=== PATIENT | female | born 1985 | race Hispanic/Latino ===

== ENCOUNTER 2017-11-11 10:13 | Inpatient (IN) | payer OTHER, MEDICAID ==
[~2017-11-11] VITALS: Ht 162.6 cm; Wt 108.0 kg
[2017-11-11 11:06] LABS: APPEARANCE,URINE CLEAR (CLEAR); BILIRUBIN,URINE NEGATIVE (NEGATIVE); COLOR,URINE YELLOW (YELLOW); GLUCOSE, URINE (UA) NEGATIVE (NEGATIVE); KETONES,URINE 5 mg/dL (NEGATIVE); LEUKOCYTE ESTERASE ,URINE NEGATIVE (NEGATIVE); NITRATE,URINE NEGATIVE (NEGATIVE); OCCULT BLOOD,URINE NEGATIVE (NEGATIVE); PROTEIN,URINE NEGATIVE (NEGATIVE)
[2017-11-11 11:35] LABS: MUCUS,URINE Rare LPF (None Seen)
[2017-11-11 11:36] LABS: BACTERIA,URINE Rare /HPF (None Seen); RBC,URINE 0-1 /HPF (0-1); WBC,URINE None Seen /HPF (0-1)
[2017-11-11] MEDS ORDERED: CALDOLOR 800MG+NS 250ML 250 ML IV PRN (12:30)
[2017-11-11] MEDS ORDERED: CEFAZOLIN SODIUM 1 GM VIAL IVP PRN (12:30)
[2017-11-11] MEDS ORDERED: LACTATED RINGERS 1000ML 1,000 ML IV SCH (12:30)
[2017-11-11 12:42] LABS: HEMATOCRIT 38.1 % (36-48); MEAN CORPUSCULAR HEMOGLOBIN 29.4 pg (27.0-33.0); MEAN CORPUSCULAR HGB CONC 33.6 g/dL (32.0-36.0); MEAN CORPUSCULAR VOLUME 87.6 fL (79-99); NUCLEATED RED BLOOD CELLS 0.1 % (0.0-0.19); PLATELET COUNT (AUTO) 263 K/uL (130-400); RED BLOOD CELL COUNT(AUTO) 4.35 MIL/uL (4.00-5.50); RED CELL DISTRIBUTION WIDTH 18.8 % (11.0-15.5); WHITE BLOOD COUNT (AUTO) 11.5 K/uL (4.8-10.8)
[2017-11-11] MEDS ORDERED: FENTANYL CITRATE PF 50 MCG/1 ML 2ML VIAL ONE (13:17)
[2017-11-11] MEDS ORDERED: DURAMORPH PF1 MG/ML 10ML AMP IV ONE (13:19)
[2017-11-11] MEDS ORDERED: CEFAZOLIN SODIUM 1 GM VIAL IVP ONE (13:30)
[2017-11-11] MEDS ORDERED: ONDANSETRON HCL 4 MG/2 ML VIAL ONE (14:11)
[2017-11-11] MEDS ORDERED: OXYTOCIN 10 USP UNITS/ML ONE ×2 (14:11→17:20)
[2017-11-11] MEDS ORDERED: PHENYLEPHRINE HCL 10 MG/ML 1ML VIAL IV ONE (14:11)
[2017-11-11] MEDS ORDERED: SODIUM CHLORIDE 0.9% 10 ML VIAL ONE (14:11)
[2017-11-11] MEDS ORDERED: EPHEDRINE SULFATE 50 MG/ML AMPULE IVP PRN (14:45)
[2017-11-11] MEDS ORDERED: ONDANSETRON HCL 4 MG/2 ML VIAL IVP PRN ×2 (14:45)
[2017-11-11] MEDS ORDERED: METOCLOPRAMIDE 10 MG/2 ML VIAL IVP PRN (14:45)
[2017-11-11] MEDS ORDERED: PROMETHAZINE HCL 25 MG/ML 1ML AMPULE IM PRN ×2 (14:45→20:45)
[2017-11-11] MEDS ORDERED: NALOXONE HCL 0.4 MG/1 ML ML IVP PRN ×2 (14:45)
[2017-11-11] MEDS ORDERED: HYDROCODONE/ACETAMINOPHEN 5/325 MG TAB PO PRN (14:45)
[2017-11-11] MEDS ORDERED: DiphenhydrAMINE HCL 50 MG/ML VIAL IVP PRN (14:45)
[2017-11-11] MEDS ORDERED: MORPHINE SULFATE 2 MG/ML 1ML SYG IVP PRN (14:45)
[2017-11-11] MEDS ORDERED: ONDANSETRON HCL 4 MG/2 ML 8 MG in SODIUM CHLORIDE 0.9% 50 ML IVP NR (14:45)
[2017-11-11 16:30] VITALS: BP 121/44
[2017-11-11 19:17] VITALS: BP 124/71
[2017-11-11] MEDS ORDERED: MEPERIDINE-PF 75 MG/ML SYG IM PRN (20:30)
[2017-11-11] MEDS ORDERED: CEFAZOLIN 2GM / 50 ML 50 ML IV SCH (20:30)
[2017-11-11] MEDS: CEFAZOLIN SODIUM 1 GM VIAL IVP SCH (21:00)
[2017-11-11 22:46] VITALS: BP 104/71
[2017-11-11] MEDS: HYDROCODONE/ACETAMINOPHEN 5/325 MG TAB PO PRN (23:06)
[2017-11-12] MEDS: DEXTROSE 5 %-0.45 % NACL 1,000 ML IV SCH ×4 (01:00→16:30)
[2017-11-12 03:02] VITALS: BP 95/49
[2017-11-12] MEDS: CEFAZOLIN SODIUM 1 GM VIAL IVP SCH (05:03)
[2017-11-12] MEDS: HYDROCODONE/ACETAMINOPHEN 5/325 MG TAB PO PRN ×2 (05:14→23:43)
[2017-11-12 06:33] LABS: HEMATOCRIT 33.8 % (36-48); MEAN CORPUSCULAR HEMOGLOBIN 29.7 pg (27.0-33.0); MEAN CORPUSCULAR HGB CONC 33.7 g/dL (32.0-36.0); MEAN CORPUSCULAR VOLUME 88.2 fL (79-99); NUCLEATED RED BLOOD CELLS 0.1 % (0.0-0.19); PLATELET COUNT (AUTO) 223 K/uL (130-400); RED BLOOD CELL COUNT(AUTO) 3.83 MIL/uL (4.00-5.50); RED CELL DISTRIBUTION WIDTH 18.6 % (11.0-15.5)
[2017-11-12 07:51] VITALS: BP 102/52
[2017-11-12] MEDS ORDERED: LANOLIN 30GM OINTMENT TP PRN (08:00)
[2017-11-12] MEDS ORDERED: ACETAMINOPHEN EXTRA STRENGTH 500 MG TABLET PO PRN (08:00)
[2017-11-12] MEDS ORDERED: BISACODYL 10 MG SUPP.RECT RC PRN (08:00)
[2017-11-12] MEDS ORDERED: DIPHENHYDRAMINE HCL 25 MG CAPSULE PO PRN (08:00)
[2017-11-12] MEDS ORDERED: HYDROCODONE/ACETAMINOPHEN 5/325 MG TAB PO PRN (08:00)
[2017-11-12] MEDS: SIMETHICONE 80 MG TAB.CHEW PO PRN ×3 (09:14→21:25)
[2017-11-12] MEDS: DOCUSATE SODIUM 100 MG CAP PO SCH ×2 (09:14→21:25)
[2017-11-12] MEDS: IBUPROFEN 600 MG TABLET PO PRN ×2 (09:15→18:24)
[2017-11-12] MEDS: ACETAMINOPHEN-CODEINE 300/30MG TAB PO PRN ×2 (11:10→19:56)
[2017-11-12 11:33] VITALS: BP 111/63
[2017-11-12 15:52] VITALS: BP 129/64
[2017-11-12] MEDS ORDERED: MEASLES/MUMPS/RUBELLA VACCINE, LIVE 0.5 ML/VIAL SQ SCH (16:00)
[2017-11-12] MEDS: DIPH,PERTUSS(ACELL),TET VAC/PF 0.5 ML VIAL IM SCH (18:27)
[2017-11-12 19:45] VITALS: BP 109/48
[2017-11-12 23:15] VITALS: BP 106/49
[2017-11-13 03:08] VITALS: BP 108/72
[2017-11-13] MEDS: IBUPROFEN 600 MG TABLET PO PRN (03:16)
[2017-11-13] MEDS: DEXTROSE 5 %-0.45 % NACL 1,000 ML IV SCH (05:50)
[2017-11-13 07:56] VITALS: BP 117/74
[2017-11-13] MEDS: DIPH,PERTUSS(ACELL),TET VAC/PF 0.5 ML VIAL IM SCH (08:00)
[2017-11-13] MEDS: ACETAMINOPHEN-CODEINE 300/30MG TAB PO PRN (08:14)
[2017-11-13 08:24] LABS: HEPATITIS Bs ANTIGEN SCREEN P Negative (Negative)
[2017-11-13] MEDS: DOCUSATE SODIUM 100 MG CAP PO SCH (09:04)
[2017-11-13] MEDS: SIMETHICONE 80 MG TAB.CHEW PO PRN (09:04)
[2017-11-13 11:44] VITALS: BP 121/67
== END 2017-11-13 11:50 | disposition home or self-care (01) | DRG 766 ==
LOC: EDH 10:13 → OBSVTOIN 10:23 → LDH 10:23 → WSH 16:09
PROVIDERS: ADMIT Obstetrics & Gynecology; ATTEND Obstetrics & Gynecology
PROC: 10D00Z1 Extraction of Products of Conception, Low, Open Approach (ICD-10-PCS; 2017-11-11)
PROC: 3E0234Z Introduction of Serum, Toxoid and Vaccine into Muscle, Percutaneous Approach (ICD-10-PCS; 2017-11-11)
PROC: 3E0234Z Introduction of Serum, Toxoid and Vaccine into Muscle, Percutaneous Approach (ICD-10-PCS; 2017-11-11)
PROC: 0UB70ZZ Excision of Bilateral Fallopian Tubes, Open Approach (ICD-10-PCS; principal; 2017-11-11 13:46)
DX: O34.211 Maternal care for low transverse scar from previous cesarean delivery (principal); Z23 Encounter for immunization; Z30.2 Encounter for sterilization; Z37.0 Single live birth; Z3A.39 39 weeks gestation of pregnancy
CPT/HCPCS: 36415; 59510; 81001; 85027; 86592; 86850; 86900; 86901; 87340; 88302; 90707; 90715; A4218; A4344; A4450; A4606; J0690; J1200; J1741; J2274; J2370; J2405; J2590; J3010; J7120